=== PATIENT | male | born 1995 | race Caucasian/White ===

== ENCOUNTER 2020-07-19 12:46 | Emergency (ER) | payer BC, SELFPAY ==
--- NOTE | 2020-07-19 12:48 | ED.GENADULT ---
HPI - General Adult General Chief complaint: Skin/Abscess/Foreign Body Stated complaint: Abscess on back Time Seen by Provider: 07/19/20 12:48 Source: patient Mode of arrival: ambulatory Limitations: no limitations History of Present Illness HPI narrative: 25-year-old male patient presents to the [facility] with complaints of an abscess to the left buttocks that he has had for the past 1 to 2 days. Patient states he has been using warm compresses to it. Patient denies any fevers, body aches or chills. Denies taking any Tylenol or ibuprofen for the pain. Related Data Allergies Allergy/AdvReac Type Severity Reaction Status Date / Time amoxicillin Allergy Unknown Swelling Verified 10/06/15 09:35 Review of Systems Review of Systems: Narrative: CONSTITUTIONAL: Denies fever, chills, or sweats. EYES: Denies visual changes, redness, or discharge. ENT: Denies rhinorrhea, congestion, sore throat, or otalgia. CARDIOVASCULAR: Denies chest pain, palpitations, or edema. RESPIRATORY: Denies cough or dyspnea. GASTROINTESTINAL: Denies abdominal pain, nausea, vomiting, or diarrhea. GENITOURINARY: Denies dysuria or hematuria. SKIN: Denies rash or itching. Positive wound to left buttocks x1 to 2 days MUSCULOSKELETAL: Denies back pain, joint pain, or myalgia. NEUROLOGIC: Denies headache, numbness, or weakness. PSYCHIATRIC: Denies anxiety or depression. [facility] Past Medical History Medical History (Updated 07/19/20 @ 13:16 by STEFFI Metz) Anxiety Bipolar disorder Musculoskeletal disorder Fracture right heel, bilateral knee injury Social History Social History Gender identity (if verbalized by the patient): Male Comments At the time of my signature I agree with nursing past medical history, surgical, social, and family history. There is no relevant family history pertinent to the presenting complaint. Exam Narrative: Exam Narrative: GENERAL: Well-appearing, well-nourished, and in no acute distress. HEAD: Normocephalic, atraumatic. EYES: PERRLA and EOMI. ENT: Nares clear, no rhinorrhea or epistaxis. Mucous membranes moist. NECK: Supple. No lymphadenopathy CHEST: Clear to auscultation. No respiratory distress. HEART: Regular rate and rhythm. No murmur heard. Normal peripheral pulses. ABDOMEN: Soft, nontender, nondistended, normal active bowel sounds. EXTREMITIES: Normal range of motion. No edema. SKIN: Warm, dry, no rash. Patient has a 0.5 cm erythemic area to the top of the left buttocks. There are there is a little bit of firmness but no warmth to the area. Very slight tenderness noted on palpation. No open wound or drainage noted. NEURO: No focal deficits. Alert and oriented x3. Course Vital Signs Vital signs: Vital Signs Temperature 36.4 C L 07/19/20 12:59 Pulse Rate 77 07/19/20 12:59 Respiratory Rate 16 07/19/20 12:59 Blood Pressure 111/89 07/19/20 12:59 Pulse Oximetry 100 07/19/20 12:59 Temperature 36.4 C L 07/19/20 12:59 Pulse Rate 77 07/19/20 12:59 Respiratory Rate 16 07/19/20 12:59 Blood Pressure 111/89 07/19/20 12:59 Pulse Oximetry 100 07/19/20 12:59 Vital signs reviewed Medical Decision Making Differential Diagnosis Differential Diagnosis: Differential diagnosis: Abscess, cellulitis, hidradenitis, laceration, puncture wound. Discussed with patient that he should continue doing warm compresses to the area we will go ahead and put him on an antibiotic. Discussed with him I do not think that this needs to be open at this time however if it continues to grow the center continues to get more higher or feels warm to the touch then he would need to come back we need to probably open it up but at this time I do not see any necessity to open it up but we will go ahead and put him on oral antibiotics. Patient verbalized understanding denies any other questions or concerns at this time. Vital Signs Vital Signs: Vital Signs T
[2020-07-19 12:59] VITALS: BP 111/89; PULSE 77; RESP 16; TEMP 36.4; O2SAT 100
== END 2020-07-19 13:20 | disposition home or self-care (01) ==
PROVIDERS: Emergency Provider Nurse Practitioner Family
DX: L02.31 Cutaneous abscess of buttock (principal)
CPT/HCPCS: 99203; G0463